=== PATIENT | male | born 1975 ===

== ENCOUNTER 2024-11-28 11:50 | Emergency (ER) | payer MEDICAID, OTHER ==
[~2024-11-28] VITALS: Ht 180.3 cm; Wt 100.0 kg
[2024-11-28 12:15] VITALS: BP 157/109; PULSE 110; RESP 18; O2SAT 96
[2024-11-28] MEDS ORDERED: CLINDAMYCIN HCL 150 MG CAP PO ONE (16:15)
[2024-11-28] MEDS ORDERED: cefTRIAXone SOD 1,000 MG VL IM ONE (16:15)
--- NOTE | 2024-11-28 16:17 | ED.PDOC ---
History of Present Illness HPI Comments 49-year-old male came to the ER stating that he had an accident three weeks ago injuring his left hand. He was using a drill when the drill accidentally slipped and went through his palm. He did not follow up with any provider after the accident. The bleeding stopped on his own. He did not get any antibiotic or tetanus after the injury. He does use drugs. He denies any other symptoms. Chief Complaint: Wound Check Time Seen by MD: 15:13 Primary Care Provider: NONE Reviewed Notes: Nurses Notes, Medications, Allergies Allergies: Coded Allergies: NO KNOWN ALLERGIES (Unverified , 11/28/24) Information Source: Patient Mode of Arrival: Ambulatory Severity: Mild Timing: Days Duration: Since onset Past Medical History PAST MEDICAL HISTORY: Denies Surgical History: Denies all surgeries Social History Smoker: Cigarettes Alcohol: Sober Drugs: Marijuana, Methamphetamine Constitutional: denies: chills, diaphoresis, fatigue, fever, malaise, sweats, weakness, others EENTM: denies: blurred vision, double vision, ear bleeding, ear discharge, ear drainage, ear pain, ear ringing, eye pain, eye redness, hearing loss, mouth pain, mouth swelling, nasal discharge, nose bleeding, nose congestion, nose pain, photophobia, tearing, throat pain, throat swelling, voice changes, others Respiratory: denies: cough, hemoptysis, orthopnea, SOB at rest, shortness of breath, SOB with excertion, stridor, wheezing, others Cardiovascular: denies: chest pain, dizzy spells, diaphoresis, Dyspnea on exertion, edema, irregular heart beat, left arm pain, lightheadedness, palpitations, PND, syncope, others Gastrointestinal: denies: abdomen distended, abdominal pain, blood streaked bowels, constipated, diarrhea, dysphagia, difficulty swallowing, hematemesis, melena, nausea, poor appetite, poor fluid intake, rectal bleeding, rectal pain, vomiting, others Genitourinary: denies: burning, dysuria, flank pain, frequency, hematuria, incontinence, penile discharge, penile sore, pain, testicle pain, testicle swelling, urgency, others Neurological: denies: dizziness, fainting, headache, left sided numbness, left sided weakness, numbness, paresthesia, pre-existing deficit, right sided numbness, right sided weakness, seizure, speech problems, tingling, tremors, weakness, others Musculoskeletal: denies: back pain, gout, joint pain, joint swelling, muscle pain, muscle stiffness, neck pain, others Integumetry: reports: wounds (Left hand); denies: bruises, change in color, change in hair/nails, dryness, laceration, lesions, lumps, rash, others Allergic/Immunocompromised: denies: Difficulty Healing, Frequent Infections, Hives, Itching, others Hematologic/Lymphatic: denies: anemia, blood clots, easy bleeding, easy bruising, swollen glands, others Endocrine: denies: excessive hunger, excessive sweating, excessive thirst, excessive urination, flushing, intolerance to cold, intolerance to heat, unexplained weight gain, unexplained weight loss, others Psychiatric: denies: anxiety, bipolar disorder, depression, hopeless, panic disorder, schizophrenia, sleepless, suicidal, others Physical Exam General Appearance: Moderate Distress HEENT: Normal ENT Inspection, Pharynx Normal, TMs Normal Neck: Full Range of Motion, Non-Tender, Normal, Normal Inspection Respiratory: Chest Non-Tender, Lungs Clear, No Accessory Muscle Use, No Respiratory Distress, Normal Breath Sounds Cardiovascular: No Edema, No JVD, No Murmur, No Gallop, Normal Peripheral Pulses, Regular Rate/Rhythm Breast Exam: Deferred Gastrointestinal: No Organomegaly, Non Tender, No Pulsatile Mass, Normal Bowel Sounds, Soft Genitalia: Deferred Pelvic: Deferred Rectal: Deferred Extremities: Normal range of motion, No pedal edema, Swelling (Left hand) Musculoskeletal : Apperance: Normal Neurologic: Alert Cerebellar Function: NOT DONE Reflexes: NOT DONE Skin: Wounds (Left hand) Lymphatic: No Adenopathy Was a procedure done? Was a procedure done?: No Differential Dx Considerations may include: Cellulitis Electrolyte imbalance X-Ray, Labs, Meds, VS Vital Signs Date Time Temp Pulse Resp B/P (MAP) Pulse Ox O2 Delivery O2 Flow Rate FiO2 11/28/24 12:15 98.4 110 18 157/109 (125) 96 Lab Test 11/28/24 12:07 Range/Units POC Glucose 401 *H 70-106 mg/dl Current Medications Medications (Trade) Dose Ordered Sig/Ayla Route Start Time Stop Time Status Last Admin Diphtheria/ Tetanus/Acell Pertussis (Boostrix T-Dap) 0.5 ml ONCE ONCE IM 11/28/24 16:15 11/28/24 16:16 DC 11/28/24 16:33 Patient alert. Came in because of left hand infection. Blood sugar elevated. Blood pressure elevated. He does not use any medication. Left hand is swollen. Cellulitis. Establish intravenous access. Was given fluids pain Was given insulin. Was given Rocephin. Was given clindamycin. Explained to the patient. Continue cardiac monitoring. Time of 1ST Reevaluation: 16:15 Reevaluation 1ST: Unchanged Patient Education/Counseling: Diagnosis, Treatment, Prognosis, Need For Follow Up Family Education/Counseling: No Family Present Departure 1 Departure Time of Disposition: 16:16 Impression: Primary Impression: Uncontrolled diabetes mellitus Qualified Codes: E13.65 - Other specified diabetes mellitus with hyperglycemia Additional Impressions: Hypertension Qualified Codes: I10 - Essential (primary) hypertension Cellulitis Qualified Codes: L03.114 - Cellulitis of left upper limb Disposition: ADMITTED INPATIENT Admit to: Med Surg Condition: Guarded e-Prescriptions Ibuprofen Micronized (Ibuprofen) 800 Mg Tab 800 MG PO DAILY for 10 Days, #10 TAB Prov: ANDREI SAVAGE MD 11/28/24 Clindamycin Hcl (Clindamycin Hcl) 300 Mg Cap 1 CAP PO TID for 10 Days, #30 CAP Prov: ANDREI SAVAGE MD 11/28/24 Amoxicillin Trihydrate (Amoxicillin) 500 Mg Cap 1 CAP PO TID for 10 Days, #30 CAP Prov: ANDREI SAVAGE MD 11/28/24 Critical Care Note Critical Care Time?: No Stability Stability form required: No Heart Score Heart Score: Heart Score Response (Comments) Value History N/A 0 EKG N/A 0 Age N/A 0 Risk Factors N/A 0 Troponin N/A 0 Total 0 ANDREI SAVAGE MD Nov 28, 2024 16:17
[2024-11-28] MEDS: TETANUS-DIPTH-ACEL PERTUSSIS 0.5ML SYR Tdap IM ONE (16:33)
[2024-11-28] MEDS ORDERED: IBUP-1455 PO (17:03)
[2024-11-28] MEDS ORDERED: AMOX500C2 PO (17:03)
[2024-11-28] MEDS ORDERED: CLIN1CAP70 PO (17:03)
[2024-11-28] MEDS: InsuLIN REG 1unit/0.01ml Soln (100units/ml) IV ONE (17:06)
[2024-11-28] MEDS: cloNIDine HCL 0.1 MG TAB PO ONE (17:06)
[2024-11-28] MEDS: PIPERACILLIN-TAZOB 3.375GM 100 ML IV ONE (17:06)
[2024-11-28] MEDS: CLINDAMYCIN 600MG IV 50 ML IV ONE (17:07)
[2024-11-28] MEDS: SODIUM CHLORIDE 0.9% 1,000 ML IV ONE ×2 (17:07)
== END 2024-11-28 18:03 | disposition home or self-care (01) ==
LOC: ER 11:50
DX: L03.114 Cellulitis of left upper limb (principal); E11.65 Type 2 diabetes mellitus with hyperglycemia; I10 Essential (primary) hypertension; F17.210 Nicotine dependence, cigarettes, uncomplicated
CPT/HCPCS: 82962; 90471; 90715

== ENCOUNTER 2024-12-04 12:07 | Emergency (ER) | payer MEDICAID ==
[~2024-12-04] VITALS: Ht 180.3 cm; Wt 93.5 kg
[~2024-12-04 12:07] MED LIST: AMOX500C2 PO; CLIN1CAP70 PO; IBUP-1455 PO
--- NOTE | 2024-12-04 13:12 | DVH ---
EXAM: XY L HAND 3V XRAY CLINICAL HISTORY: pain / infection COMPARISON: None TECHNIQUE: XY L HAND 3V XRAY Findings/Impression: 3 views of the left hand. There is no evidence of an acute fracture, dislocation, blastic, or lytic lesions. 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 No radiopaque foreign bodies. Moderate to marked soft tissue edema. No subcutaneous emphysema.
[2024-12-04] MEDS: ceFAZolin 1GM/50ML 50 ML IV ONE (13:29)
[2024-12-04 13:31] VITALS: PULSE 124; RESP 18; O2SAT 94
[2024-12-04] MEDS: cloNIDine HCL 0.1 MG TAB PO ONE (13:36)
[2024-12-04 13:46] LABS: Eosinophils # (auto) 0 10 ^3/uL (0-0.8); Eosinophils % (auto) 0.5 % (0.0-7.0); Lymphocytes # (auto) 1.4 10 ^3/uL (0.4-5.4); Mean Corpuscular Volume 85.8 fL (80.0-100.0); Neutrophils # (auto) 5.6 10 ^3/uL (1.6-8.6); Red Cell Distribution Width 13.2 % (11.8-14.3)
[2024-12-04 13:48] LABS: Basophils # (auto) 0.1 10 ^3/uL (0-0.2); Basophils % (auto) 0.7 % (0.0-2.0); Hemoglobin 19.5 g/dL (13.5-17.5); Lymphocytes % (auto) 18.4 % (10.0-50.0); Mean Corpuscular Hemoglobin 29.3 pg (28.0-32.0); Mean Corpuscular Hgb Conc. 34.2 g/dL (32.0-36.0); Monocytes # (auto) 0.6 10 ^3/uL (0-1.3); Monocytes % (auto) 7.9 % (0.0-12.0); Neutrophils % (auto) 72.5 % (37.0-80.0); Nucleated Red Blood Cells % 0.2 %; Platelet Count (auto) 285 10^3/uL (140-450); Red Blood Cells 6.66 10^6/uL (4.5-5.90); White Blood Cell 7.7 10^3/uL (4.4-10.8)
[2024-12-04] MEDS: VANCOMYCIN 1GM/250ML KIT 250 ML IV ONE (14:02)
[2024-12-04 14:03] LABS: Alanine Aminotransferase 31 U/L (7-40); Anion Gap 8 (5-15); Aspartate Aminotransferase 18 U/L (13-40); BUN/Creatinine Ratio 14.2 (10.0-20.0); Bilirubin, Total 0.6 mg/dL (0.2-1.0); Blood Urea Nitrogen 17 mg/dL (9-23); Carbon Dioxide 27 mmol/L (20-31); Potassium 4.7 mmol/L (3.5-5.1)
[2024-12-04 14:11] LABS: Alkaline Phosphatase 200 U/L (46-116); Calcium 10.4 mg/dL (8.7-10.4); Chloride 95 mmol/L (98-107); Glucose 335 mg/dL (74-106); Sodium 130 mmol/L (136-145)
[2024-12-04 14:13] LABS: Hematocrit 57.2 % (41.0-53.0)
[2024-12-04] MEDS: diphenhdrAMINE HCL 50 MG/1 ML VL IV ONE (14:32)
--- NOTE | 2024-12-04 14:49 | ED.PDOC ---
History of Present Illness Chief Complaint: Wound Check Comments 49 year old male complains of left hand pain and swelling x 2 weeks, getting worse. Patient states that 2 wks ago he accidentally punctured palm of left hand with a drill . patient has been taking clindamycin orally for the last 4 days without improvement. Time Seen by MD: 12:46 Primary Care Provider: NONE Allergies: Coded Allergies: NO KNOWN ALLERGIES (Unverified , 11/28/24) Home Meds Active Scripts Ibuprofen Micronized (Ibuprofen) 800 Mg Tab, 800 MG PO DAILY for 10 Days, #10 TAB Prov:ANDREI SAVAGE MD 11/28/24 Clindamycin Hcl (Clindamycin Hcl) 300 Mg Cap, 1 CAP PO TID for 10 Days, #30 CAP Prov:ANDREI SAVAGE MD 11/28/24 Amoxicillin Trihydrate (Amoxicillin) 500 Mg Cap, 1 CAP PO TID for 10 Days, #30 CAP Prov:ANDREI SAVAGE MD 11/28/24 Information Source: Patient Mode of Arrival: Ambulatory Severity: Severe Timing: Days Duration: Days Past Medical History PAST MEDICAL HISTORY: Denies Surgical History: Denies all surgeries Social History Smoker: Cigarettes Alcohol: Sober Drugs: Marijuana, Methamphetamine Constitutional: reports: chills, malaise Musculoskeletal: reports: others (left hand pain and swelling) Integumetry: reports: lesions, wounds, others (left hand redness, pain and swelling) All Other Systems: Reviewed and Negative Physical Exam General Appearance: Moderate Distress, Normal HEENT: Normal ENT Inspection, Pharynx Normal, TMs Normal Neck: Full Range of Motion, Non-Tender, Normal, Normal Inspection Respiratory: Chest Non-Tender, Lungs Clear, No Accessory Muscle Use, No Respiratory Distress, Normal Breath Sounds Cardiovascular: No Edema, No JVD, No Murmur, No Gallop, Normal Peripheral Pulses, Regular Rate/Rhythm Breast Exam: Deferred Gastrointestinal: No Organomegaly, Non Tender, No Pulsatile Mass, Normal Bowel Sounds, Soft Genitalia: Deferred Pelvic: Deferred Rectal: Deferred Extremities: No calf tenderness, Normal capillary refill, Normal inspection, Normal range of motion, Non-tender, No pedal edema Musculoskeletal : Apperance: Normal Neurologic: Alert, art psychotherapist II-XII nml as Tested, No Motor Deficits, Normal Affect, Normal Mood, No Sensory Deficits Cerebellar Function: Normal Reflexes: Normal Skin: Rash, Warm, Wounds Lymphatic: No Adenopathy Was a procedure done? Was a procedure done?: No Differential Dx Considerations may include: Differential diagnosis includes but is not limited to: cellulitis, abscess, retained foreign body, tissue ischemia, sepsis, osteomyelitis, fracture and others X-Ray, Labs, Meds, VS Vital Signs Date Time Temp Pulse Resp B/P (MAP) Pulse Ox O2 Delivery O2 Flow Rate FiO2 12/04/24 13:36 163/83 12/04/24 13:32 124 16 163/83 (109) 94 12/04/24 13:31 124 18 94 Room Air* 0 21 12/04/24 12:35 97.5 120 18 144/105 (118) 95 Lab Test 12/04/24 13:17 Range/Units White Blood Count 7.7 4.4-10.8 10^3/uL Red Blood Count 6.66 H 4.5-5.90 10^6/uL Hemoglobin 19.5 H 13.5-17.5 g/dL Hematocrit 57.2 H 41.0-53.0 % Mean Corpuscular Volume 85.8 80.0-100.0 fL Mean Corpuscular Hemoglobin 29.3 28.0-32.0 pg Mean Corpuscular Hemoglobin Concent 34.2 32.0-36.0 g/dL Red Cell Distribution Width 13.2 11.8-14.3 % Platelet Count 285 140-450 10^3/uL Mean Platelet Volume 8.6 6.9-10.8 fL Neutrophils (%) (Auto) 72.5 37.0-80.0 % Lymphocytes (%) (Auto) 18.4 10.0-50.0 % Monocytes (%) (Auto) 7.9 0.0-12.0 % Eosinophils (%) (Auto) 0.5 0.0-7.0 % Basophils (%) (Auto) 0.7 0.0-2.0 % Neutrophils # (Auto) 5.6 1.6-8.6 10 ^3/uL Lymphocytes # (Auto) 1.4 0.4-5.4 10 ^3/uL Monocytes # (Auto) 0.6 0-1.3 10 ^3/uL Eosinophils # (Auto) 0 0-0.8 10 ^3/uL Basophils # (Auto) 0.1 0-0.2 10 ^3/uL Nucleated Red Blood Cells 0.2 % Sodium Level 130 L 136-145 mmol/L Potassium Level 4.7 3.5-5.1 mmol/L Chloride Level 95 L 98-107 mmol/L Carbon Dioxide Level 27 20-31 mmol/L Anion Gap 8 5-15 Blood Urea Nitrogen 17 9-23 mg/dL Creatinine 1.20 0.700-1.30 mg/dL Glomerular Filtration Rate Calc 75 >90 mL/min BUN/Creatinine Ratio 14.2 10.0-20.0 Serum Glucose 335 H 74-106 mg/dL Lactic Acid Level 1.6 0.4-2.0 mmol/L Calcium Level 10.4 8.7-10.4 mg/dL Total Bilirubin 0.6 0.2-1.0 mg/dL Aspartate Amino Transferase (AST) 18 13-40 U/L Alanine Aminotransferase (ALT) 31 7-40 U/L Alkaline Phosphatase 200 H 46-116 U/L Total Protein 8.0 5.7-8.2 g/dL Albumin 5.0 H 3.2-4.8 g/dL Current Medications Medications (Trade) Dose Ordered Sig/Ayla Route Start Time Stop Time Status Last Admin Clonidine HCl (Catapres Tablet) 0.2 mg ONCE ONCE PO 12/04/24 13:00 12/04/24 13:01 DC 12/04/24 13:36 Cefazolin Sodium 50 ml @ 100 mls/hr ONCE ONCE IV 12/04/24 13:00 12/04/24 13:29 DC 12/04/24 13:29 Vancomycin HCl 250 ml @ 250 mls/hr ONCE ONCE IV 12/04/24 13:00 12/04/24 13:59 DC 12/04/24 14:02 Diphenhydramine HCl (Benadryl Injection) 25 mg ONCE ONCE IV 12/04/24 14:30 12/04/24 14:31 DC 12/04/24 14:32 Time of 1ST Reevaluation: 14:47 Reevaluation 1ST: Unchanged Patient Education/Counseling: Diagnosis, Treatment Family Education/Counseling: Diagnosis, Treatment Sepsis Sepsis Reasesment Focused Exam Sepsis focused exam: focus exam completed, time: (1430) Departure 1 Departure Time of Disposition: 14:48 Impression: Primary Impression: Cellulitis Additional Impressions: Uncontrolled diabetes mellitus Hypertension Disposition: ADMITTED INPATIENT Condition: Guarded Discharged With: Self Critical Care Note Critical Care Time?: Yes (45 min-critical care time only) Critical care comment: Total critical care time: Approximately 36 minutes Due to a high probability of clinically significant, life threatening deterioration, the patient required my highest level of preparedness to intervene emergently and I personally spent this critical care time directly and personally managing the patient. This critical care time included obtaining a history; examining the patient; pulse oximetry; ordering and review of studies; arranging urgent treatment with development of a management plan; evaluation of patient's response to treatment; frequent reassessment; and, discussions with other providers. This critical care time was performed to assess and manage the high probability of imminent, life-threatening deterioration that could result in multi-organ failure. It was exclusive of separately billable procedures and treating other patients. Stability Stability form required: No Heart Score Heart Score: Heart Score Response (Comments) Value History N/A 0 EKG N/A 0 Age N/A 0 Risk Factors N/A 0 Troponin N/A 0 Total 0 CATA MIRELES MD Dec 04, 2024 14:49
[2024-12-04] MEDS ORDERED: HYDROcodone-ACET 5/325MG TAB PO PRN (19:15)
[2024-12-04] MEDS ORDERED: VANCOMYCIN PER PHARMACY 0 MG IV SCH (19:15)
[2024-12-04] MEDS ORDERED: ONDANSETRON HCL 4 MG/2 ML VIAL IV PRN (19:15)
[2024-12-04] MEDS ORDERED: TEMAZEPAM 15 MG CAP PO PRN (19:15)
[2024-12-04] MEDS ORDERED: ACETAMINOPHEN 325 MG TAB PO PRN (19:15)
[2024-12-04] MEDS: cefTRIAXone 1GM/50ML D5W 50 ML IV SCH (20:06)
[2024-12-04 20:42] VITALS: BP 133/99; PULSE 108; RESP 16; TEMP 97.7; O2SAT 95
[2024-12-05] MEDS ORDERED: VANCOMYCIN 1GM/250ML KIT 250 ML IV SCH (02:00)
== END 2024-12-04 20:34 | disposition left against medical advice (07) ==
LOC: ER 12:07 → OVERFLOW 19:08 → UNDOADMIN 19:08 → UNDODISIN 21:14
DX: L03.114 Cellulitis of left upper limb (principal); E11.65 Type 2 diabetes mellitus with hyperglycemia; I10 Essential (primary) hypertension; F17.210 Nicotine dependence, cigarettes, uncomplicated; Z79.1 Long term (current) use of non-steroidal anti-inflammatories (NSAID); Z79.2 Long term (current) use of antibiotics
CPT/HCPCS: 36415; 73130; 80053; 83036; 83605; 85025; 87040; 96365; 96367; 96375; 99284; J0690; J0696; J1200; J3370; 99291; G0378